=== PATIENT | female | born 2000 | race Caucasian/White ===

== ENCOUNTER 2023-08-26 11:00 | Outpatient (RCR) | payer OTHER, SELFPAY | END 2023-11-22 09:55 | disposition home or self-care (01) | PROVIDERS: PCP Psychiatry & Neurology Neurology; Visit Provider Psychiatry & Neurology Neurology | DX: G44.209 Tension-type headache, unspecified, not intractable (principal); M54.2 Cervicalgia; Z51.89 Encounter for other specified aftercare | CPT/HCPCS: 97110; 97112; 97140; 97161; 97530 ==